=== PATIENT | male | born 1965 ===

== ENCOUNTER 2016-09-02 11:18 | Emergency (ER) | payer OTHER ==
[2016-09-02 12:35] VITALS: TEMP 98.1; O2SAT 95
[2016-09-02 12:41] LABS: APPEARANCE,URINE Cloudy; BILIRUBIN,URINE 2+ (NEGATIVE); COLOR,URINE Dark yellow; GLUCOSE, URINE (UA) NEGATIVE (NEGATIVE); KETONES,URINE NEGATIVE (NEGATIVE); LEUKOCYTE ESTERASE ,URINE NEGATIVE (NEGATIVE); NITRATE,URINE NEGATIVE (NEGATIVE); OCCULT BLOOD,URINE NEGATIVE (NEG-TRACE); PH,URINE 5.5
[2016-09-02] MEDS ORDERED: KETOROLAC TROMETHAMINE 30 MG/ML SOL IM ONE (12:41)
[2016-09-02] MEDS ORDERED: KETOROLAC TROMETHAMINE 30 MG/ML SOL ONE (12:45)
[2016-09-02 13:07] LABS: ICTOTEST,URINE POSITIVE (NEGATIVE); RBC,URINE NEG (0-3AV/HPF); WBC,URINE 0-2 (0-5AV/HPF)
[2016-09-02] MEDS ORDERED: DIPHENHYDRAMINE 50 MG/ML SOL ONE (13:16)
[2016-09-02 13:32] LABS: BASOPHILS % (AUTO) 2 % (0-3); EOSINOPHILS % (AUTO) 3 % (0-9); HEMATOCRIT 39 % (39-53); MEAN CORPUSCULAR HGB CONC 34.8 gm/dl (32.0-36.0); MEAN CORPUSCULAR VOLUME 95 fL (80-100); MONOCYTES % (AUTO) 14.4 % (0-12); NEUTROPHILS % (AUTO) 51.9 % (37-80)
[2016-09-02] MEDS ORDERED: SODIUM CHLORIDE 0.9% 1000ML 1,000 ML IV ONE (13:32)
[2016-09-02 13:46] LABS: MAGNESIUM 1.8 mg/dl (1.8-2.4)
[2016-09-02 13:48] LABS: TRICYCLIC ANTIDEPRESSANTS NEGATIVE (NEGATIVE)
[2016-09-02 13:49] LABS: AMPHETAMINES NEGATIVE (NEGATIVE); METHADONE NEGATIVE (NEGATIVE); OPIATES(OP13) NEGATIVE (NEGATIVE); OXYCODONE(OXY) NEGATIVE (NEGATIVE); PROPOXYPHENE(PPX) NEGATIVE (NEGATIVE)
[2016-09-02 13:52] LABS: ALBUMIN 3.4 gm/dl (3.4-5.0); CALCIUM 8.1 mg/dl (8.5-10.1); POTASSIUM 3.7 mMol/L (3.5-5.1)
[2016-09-02 14:57] VITALS: BP 121/73; PULSE 70; RESP 22
== END 2016-09-02 14:43 | disposition home or self-care (01) ==
LOC: ED 11:18
DX: M54.5 Low back pain (principal); N39.0 Urinary tract infection, site not specified; R55 Syncope and collapse
CPT/HCPCS: 99284 ×3; 72120; 80053; 80305; 80307; 81001; 83735; 84100; 84484; 85025; 93005; J1200; J1885; 72070; 96365; 96372

== ENCOUNTER 2016-10-08 21:07 | Emergency (ER) | payer OTHER ==
[2016-10-08 21:25] VITALS: RESP 16; TEMP 97.9; O2SAT 96
[2016-10-08 21:43] VITALS: BP 140/100; PULSE 83
== END 2016-10-08 22:33 ==
LOC: ED 21:07
DX: S00.83XA Contusion of other part of head, initial encounter (principal); Y04.0XXA Assault by unarmed brawl or fight, initial encounter; F10.129 Alcohol abuse with intoxication, unspecified
CPT/HCPCS: 70486; 99283

== ENCOUNTER 2016-10-31 13:30 | Emergency (ER) | payer OTHER ==
[2016-10-31 13:53] VITALS: BP 135/95; PULSE 83; RESP 16; TEMP 96.9; O2SAT 100
[2016-10-31 14:13] LABS: HEMATOCRIT 42 % (39-53); MEAN CORPUSCULAR HGB CONC 34.1 gm/dl (32.0-36.0)
[2016-10-31 14:30] LABS: MEAN CORPUSCULAR VOLUME 100 fL (80-100)
[2016-10-31 14:34] LABS: ALBUMIN 3.1 gm/dl (3.4-5.0); ALT 33 IU/L (14-63); GLOM FILT RATE 118 mL/min (>60); POTASSIUM 3.7 mMol/L (3.5-5.1); SALICYLATE < 2.8 mg/dl (2.8-30.0); SODIUM 140 mMol/L (136-145); THYROID STIMULATING HORMONE 1.565 uIU/ml (0.358-3.740)
[2016-10-31 14:35] LABS: AMPHETAMINES NEGATIVE (NEGATIVE); METHADONE NEGATIVE (NEGATIVE); OPIATES(OP13) NEGATIVE (NEGATIVE); PROPOXYPHENE(PPX) NEGATIVE (NEGATIVE); TRICYCLIC ANTIDEPRESSANTS NEGATIVE (NEGATIVE)
[2016-10-31 14:36] LABS: OXYCODONE(OXY) NEGATIVE (NEGATIVE)
[2016-10-31 14:48] LABS: LYMPHOCYTES % (MANUAL) 36 % (10-50)
[2016-10-31 14:49] LABS: BASOPHILS % (MANUAL) 3 % (0-3); EOSINOPHILS % (MANUAL) 10 % (0-9)
[2016-10-31] MEDS: SODIUM CHLORIDE 0.9% 1000 ML SOL IV SCH ×2 (19:15→20:20)
== END 2016-10-31 21:40 ==
LOC: ED 13:30
DX: R45.851 Suicidal ideations (principal); F10.129 Alcohol abuse with intoxication, unspecified; Y90.7 Blood alcohol level of 200-239 mg/100 ml
CPT/HCPCS: 36415; 80053; 80305; 80307; 84443; 85007; 85027; 99285

== ENCOUNTER 2017-09-22 17:25 | Emergency (ER) | payer OTHER ==
[2017-09-22 17:39] VITALS: TEMP 98.3
[2017-09-22 18:21] LABS: BASOPHILS % (AUTO) 2 % (0-3); EOSINOPHILS % (AUTO) 1 % (0-9); HEMATOCRIT 36 % (39-53); HEMOGLOBIN 12.2 gm/dl (13.5-17.7); LYMPHOCYTES % (AUTO) 9.722 % (10-50); MEAN CORPUSCULAR HEMOGLOBIN 37.5 pg (27.0-32.0); MEAN CORPUSCULAR HGB CONC 33.9 gm/dl (32.0-36.0); MONOCYTES % (AUTO) 11.7 % (0-12); NEUTROPHILS % (AUTO) 76.5 % (37-80)
[2017-09-22 18:35] LABS: INR 1.63 (0.86-1.12)
[2017-09-22 18:48] LABS: ALBUMIN 1.7 gm/dl (3.4-5.0); CALCIUM 7.8 mg/dl (8.5-10.1); CARBON DIOXIDE 26.7 mEq/L (21-32); CREATININE 0.7 mg/dl (0.80-1.30); POTASSIUM 3.1 mMol/L (3.5-5.1); TOTAL PROTEIN 7.1 gm/dl (6.4-8.2)
[2017-09-22 18:50] LABS: MEAN CORPUSCULAR VOLUME 111 fL (80-100)
[2017-09-22 18:51] LABS: BILIRUBIN,TOTAL 18.9 mg/dl (0.2-1.0)
[2017-09-22] MEDS ORDERED: SPIRONOLACTONE 25 MG TAB PO SCH (20:00)
[2017-09-22] MEDS ORDERED: SPIRONOLACTONE 25 MG TAB ONE (20:20)
[2017-09-22 20:32] VITALS: RESP 18
[2017-09-22 20:33] VITALS: BP 142/97; PULSE 74; O2SAT 98
[2017-09-23] MEDS ORDERED: SPIRONOLACTONE 25 MG TAB PO SCH (09:00)
== END 2017-09-22 20:28 | disposition home or self-care (01) ==
LOC: ED 17:25
DX: K70.31 Alcoholic cirrhosis of liver with ascites (principal); R17 Unspecified jaundice; K72.90 Hepatic failure, unspecified without coma
CPT/HCPCS: 36415; 74177; 80053; 82150; 85025; 85610; 99285; Q9967; A9270-GY

== ENCOUNTER 2017-10-15 23:07 | Inpatient (IN) | payer OTHER ==
[2017-10-15] MEDS ORDERED: SODIUM CHLORIDE 0.9% FLUSH 10 ML SOL IV PRN (23:53)
[2017-10-15 23:57] LABS: BASOPHILS % (AUTO) 2 % (0-3); EOSINOPHILS % (AUTO) 1 % (0-9); HEMATOCRIT 36 % (39-53); HEMOGLOBIN 12.5 gm/dl (13.5-17.7); LYMPHOCYTES % (AUTO) 8.7 % (10-50); MEAN CORPUSCULAR HEMOGLOBIN 37.6 pg (27.0-32.0); MEAN CORPUSCULAR HGB CONC 35.3 gm/dl (32.0-36.0)
[2017-10-15 23:59] LABS: ALBUMIN 1.8 gm/dl (3.4-5.0); BILIRUBIN,TOTAL 13.2 mg/dl (0.2-1.0); CALCIUM 7.9 mg/dl (8.5-10.1); CARBON DIOXIDE 26.8 mEq/L (21-32); CREATININE 0.9 mg/dl (0.80-1.30); MEAN CORPUSCULAR VOLUME 107 fL (80-100); POTASSIUM 3.4 mMol/L (3.5-5.1); TOTAL PROTEIN 7.7 gm/dl (6.4-8.2)
[2017-10-16] MEDS ORDERED: ONDANSETRON HCL 4 MG/2 ML SOL IV ONE (00:02)
[2017-10-16] MEDS ORDERED: ONDANSETRON HCL 4 MG/2 ML SOL ONE (00:04)
[2017-10-16] MEDS: SODIUM CHLORIDE 0.9% 1000ML 1,000 ML IV SCH ×2 (00:15→10:39)
[2017-10-16 00:16] LABS: ANISOCYTOSIS SLIGHT AMT
[2017-10-16] MEDS ORDERED: ONDANSETRON 4 MG ODT BU PRN (00:32)
[2017-10-16] MEDS ORDERED: PATIENT EDUCATION 1 MISC PRN (01:32)
[2017-10-16] MEDS ORDERED: ACETAMINOPHEN 325 MG PO PRN (01:34)
[2017-10-16 07:29] LABS: CALCIUM 7.4 mg/dl (8.5-10.1); CARBON DIOXIDE 25.7 mEq/L (21-32); CREATININE 0.75 mg/dl (0.80-1.30); POTASSIUM 3.5 mMol/L (3.5-5.1)
[2017-10-16 07:30] LABS: APPEARANCE,URINE Cloudy; BILIRUBIN,URINE 3+ (NEGATIVE); COLOR,URINE Orange; GLUCOSE, URINE (UA) TRACE (NEGATIVE); KETONES,URINE 1+ (NEGATIVE); LEUKOCYTE ESTERASE ,URINE NEGATIVE (NEGATIVE); NITRATE,URINE NEGATIVE (NEGATIVE); OCCULT BLOOD,URINE NEGATIVE (NEG-TRACE)
[2017-10-16 07:56] LABS: ICTOTEST,URINE POSITIVE (NEGATIVE); RBC,URINE 0-2 (0-3AV/HPF)
[2017-10-16 07:57] LABS: AMPHETAMINES NEGATIVE (NEGATIVE); BACTERIA 4+ (< 1+); BARBITUATES NEGATIVE (NEGATIVE); BENZODIAZEPINES NEGATIVE (NEGATIVE); CANNABINOL(THC) POSITIVE (NEGATIVE); COCAINE(COC) NEGATIVE (NEGATIVE); EPITHELIAL CELLS 0-2 (SQUAMOUS); METHADONE NEGATIVE (NEGATIVE); METHAMPHETAMINES NEGATIVE (NEGATIVE); OPIATES(OPI) NEGATIVE (NEGATIVE); OXYCODONE(OXY) NEGATIVE (NEGATIVE); PROPOXYPHENE(PPX) NEGATIVE (NEGATIVE); TRICYCLIC ANTIDEPRESSANTS NEGATIVE (NEGATIVE)
[2017-10-16 16:33] VITALS: TEMP 98.6
[2017-10-16 17:43] VITALS: BP 158/94; PULSE 109; RESP 12; O2SAT 100
[2017-10-16 17:51] LABS: BASOPHILS % (AUTO) 1 % (0-3); EOSINOPHILS % (AUTO) 1 % (0-9); HEMATOCRIT 38 % (39-53); HEMOGLOBIN 12.9 gm/dl (13.5-17.7); LYMPHOCYTES % (AUTO) 9.7 % (10-50); MEAN CORPUSCULAR HEMOGLOBIN 37.5 pg (27.0-32.0); MEAN CORPUSCULAR HGB CONC 33.9 gm/dl (32.0-36.0); MONOCYTES % (AUTO) 9.4 % (0-12); NEUTROPHILS % (AUTO) 79.1 % (37-80)
[2017-10-16 17:53] LABS: ABG PH 7.31 (7.35-7.45)
[2017-10-16 17:57] LABS: MEAN CORPUSCULAR VOLUME 110 fL (80-100)
[2017-10-16 18:07] LABS: ANISOCYTOSIS MOD AMT; POIKILOCYTOSIS SLIGHT AMT
[2017-10-16 18:08] LABS: ALBUMIN 1.7 gm/dl (3.4-5.0); BILIRUBIN,TOTAL 13.8 mg/dl (0.2-1.0); CARBON DIOXIDE 18.3 mEq/L (21-32); CREATININE 0.98 mg/dl (0.80-1.30); MAGNESIUM 2.2 mg/dl (1.8-2.4); POTASSIUM 3.5 mMol/L (3.5-5.1); SPHEROCYTES PRESENT; TARGET CELLS PRESENT; TOTAL PROTEIN 7.9 gm/dl (6.4-8.2)
[2017-10-16] MEDS ORDERED: FLUTICASONE/SALMETEROL 250/50 1 PUFF DSK INH SCH (21:00)
[2017-10-17] MEDS ORDERED: CIPROFLOXACIN HCL 500 MG TAB PO SCH (07:00)
[2017-10-17] MEDS ORDERED: FOLIC ACID 1 MG TAB PO SCH (09:00)
[2017-10-17] MEDS ORDERED: FUROSEMIDE 40 MG TAB PO SCH (09:00)
[2017-10-17] MEDS ORDERED: SERTRALINE HYDROCHLORIDE 50 MG TAB PO SCH (09:00)
[2017-10-17] MEDS ORDERED: THIAMINE 100 MG TAB PO SCH (09:00)
[2017-10-17] MEDS ORDERED: SPIRONOLACTONE 25 MG TAB PO SCH (09:00)
== END 2017-10-16 18:20 | disposition short-term general hospital (02) | DRG 425 ==
LOC: ED 23:07 → ACUTE CARE 10-16 00:23
PROVIDERS: ADMIT Family Medicine; ATTEND Family Medicine
DX: E87.1 Hypo-osmolality and hyponatremia (principal); K70.31 Alcoholic cirrhosis of liver with ascites; R56.9 Unspecified convulsions; R17 Unspecified jaundice; R41.0 Disorientation, unspecified; R53.1 Weakness; R11.2 Nausea with vomiting, unspecified; I10 Essential (primary) hypertension; J45.909 Unspecified asthma, uncomplicated; F12.90 Cannabis use, unspecified, uncomplicated
CPT/HCPCS: 36415; 36600; 80048; 80053; 80305; 80307; 81001; 82140; 82803; 83735; 85025; 87088; 94760; 96374; 99235; 99284; J2405; A9270-GY

== ENCOUNTER 2017-11-13 09:24 | Emergency (ER) | payer OTHER ==
[2017-11-13 09:50] VITALS: TEMP 98
[2017-11-13 10:10] LABS: BASOPHILS % (AUTO) 1 % (0-3); EOSINOPHILS % (AUTO) 0 % (0-9); HEMATOCRIT 38 % (39-53); HEMOGLOBIN 12.9 gm/dl (13.5-17.7); INR 1.28 (0.86-1.12); LYMPHOCYTES % (AUTO) 4.5 % (10-50); MEAN CORPUSCULAR HEMOGLOBIN 37.1 pg (27.0-32.0); MEAN CORPUSCULAR HGB CONC 33.9 gm/dl (32.0-36.0); MONOCYTES % (AUTO) 3.4 % (0-12); NEUTROPHILS % (AUTO) 91.1 % (37-80)
[2017-11-13 10:11] LABS: MEAN CORPUSCULAR VOLUME 109 fL (80-100)
[2017-11-13 10:15] LABS: ALBUMIN 1.6 gm/dl (3.4-5.0); ALKALINE PHOSPHATASE 253 IU/L (46-116); ALT 135 IU/L (14-63); AMMONIA < 10 umol/L (11-32); AST 111 IU/L (15-37); BILIRUBIN,TOTAL 5.1 mg/dl (0.2-1.0); BLOOD UREA NITROGEN 10 mg/dl (7-18); CALCIUM 7.7 mg/dl (8.5-10.1); CARBON DIOXIDE 27.6 mEq/L (21-32); CHLORIDE 97 mMol/L (98-107); CREATININE 0.81 mg/dl (0.80-1.30); GLUCOSE 182 mg/dl (74-106); POTASSIUM 3.8 mMol/L (3.5-5.1); SODIUM 131 mMol/L (136-145); TOTAL PROTEIN 6.1 gm/dl (6.4-8.2)
[2017-11-13 10:25] LABS: ANISOCYTOSIS MOD AMT
[2017-11-13 12:45] VITALS: BP 148/92; PULSE 70; RESP 18; O2SAT 97
== END 2017-11-13 12:43 ==
LOC: ED 09:24
DX: R06.00 Dyspnea, unspecified (principal); R41.0 Disorientation, unspecified; I10 Essential (primary) hypertension
CPT/HCPCS: 36415; 71046; 80053; 82140; 83880; 85025; 85610; 93005; 99284; 99285

== ENCOUNTER 2018-02-08 00:47 | Emergency (ER) | payer OTHER ==
[2018-02-08 01:21] VITALS: TEMP 98.2
[2018-02-08] MEDS ORDERED: HYDROMORPHONE HCL 2 MG/ML SOL IV ONE (01:21)
[2018-02-08] MEDS ORDERED: SODIUM CHLORIDE 0.9% 1000ML 1,000 ML IV ONE (01:21)
[2018-02-08] MEDS ORDERED: ALBUMIN HUMAN 25 GM/100 ML SOL IV ONE (01:21)
[2018-02-08 01:44] LABS: BASOPHILS % (AUTO) 2 % (0-3); EOSINOPHILS % (AUTO) 3 % (0-9); HEMATOCRIT 37 % (39-53); HEMOGLOBIN 12.7 gm/dl (13.5-17.7); LYMPHOCYTES % (AUTO) 24.2 % (10-50); MEAN CORPUSCULAR HEMOGLOBIN 35.7 pg (27.0-32.0); MEAN CORPUSCULAR HGB CONC 34.8 gm/dl (32.0-36.0); MONOCYTES % (AUTO) 12.4 % (0-12); NEUTROPHILS % (AUTO) 58.3 % (37-80)
[2018-02-08] MEDS ORDERED: HYDROMORPHONE 1 MG/ML SYRINGE ONE (01:47)
[2018-02-08] MEDS ORDERED: ALBUMIN HUMAN 100 ML IV ONE (01:47)
[2018-02-08 01:51] LABS: MEAN CORPUSCULAR VOLUME 103 fL (80-100)
[2018-02-08] MEDS ORDERED: HYDROMORPHONE 1 MG/ML SYRINGE IV ONE (01:51)
[2018-02-08 01:55] LABS: ALBUMIN 1.8 gm/dl (3.4-5.0); BILIRUBIN,TOTAL 2.3 mg/dl (0.2-1.0); CALCIUM 8.5 mg/dl (8.5-10.1); CARBON DIOXIDE 23.1 mEq/L (21-32); CREATININE 0.8 mg/dl (0.80-1.30); INR 1.15 (0.86-1.12); POTASSIUM 4.2 mMol/L (3.5-5.1); TOTAL PROTEIN 6.7 gm/dl (6.4-8.2)
[2018-02-08 01:59] LABS: ANISOCYTOSIS SLIGHT AMT
[2018-02-08 03:19] VITALS: O2SAT 98
[2018-02-08] MEDS ORDERED: CEFTRIAXONE 1 GM PDS 2 GM in SODIUM CHLORIDE 0.9% 100 ML 100 ML IV ONE (04:05)
[2018-02-08] MEDS ORDERED: CEFTRIAXONE 1 GM PDS ONE (04:26)
[2018-02-08 05:23] VITALS: BP 109/66; PULSE 76; RESP 20
== END 2018-02-08 05:32 | disposition short-term general hospital (02) ==
LOC: ED 00:47
DX: K65.2 Spontaneous bacterial peritonitis (principal)
CPT/HCPCS: 74177; 80053; 85025; 85610; 96365; 96366; 96374; 99284; J0696; P9047; Q9967; J1170